=== PATIENT | female | born 1990 | race American Indian/Alaskan Native ===

== ENCOUNTER 2019-11-11 11:15 | Outpatient (CLI) | payer MEDICAID ==
[2019-11-11] MEDS ORDERED: LACTATED RINGERS 500 ML IV ONE (12:00)
[2019-11-11 12:24] VITALS: BP 122/62
[2019-11-11 13:23] LABS: Bilirubin,Urine NEG (Negative); Blood,Urine NEG (Negative); Color,Urine Yellow (Yellow); Mucus,Urine 3+ /HPF; Protein,Urine <15 mg/dL mg/dL (Negative)
== END 2019-11-11 14:02 | disposition home or self-care (01) ==
LOC: TRG 11:15 → APU 11:18 → TRG 14:02
PROVIDERS: ATTEND Obstetrics & Gynecology
DX: O26.892 Other specified pregnancy related conditions, second trimester (principal); R10.9 Unspecified abdominal pain; Z3A.25 25 weeks gestation of pregnancy
CPT/HCPCS: 59025; 81001

== ENCOUNTER 2019-12-21 17:11 | Outpatient (CLI) | payer MEDICAID ==
[2019-12-21 17:51] VITALS: BP 124/67
== END 2019-12-21 19:16 | disposition home or self-care (01) ==
LOC: TRG 17:11 → APU 17:14 → TRG 19:16
PROVIDERS: ATTEND Obstetrics & Gynecology
DX: O24.419 Gestational diabetes mellitus in pregnancy, unspecified control (principal); Z3A.30 30 weeks gestation of pregnancy
CPT/HCPCS: 59025; 82962

== ENCOUNTER 2020-01-20 17:27 | Outpatient (CLI) | payer MEDICAID ==
[2020-01-20 19:15] VITALS: BP 116/69
[2020-01-20 20:45] LABS: Bacteria,Urine 2+ /HPF (Negative); Bilirubin,Urine NEG (Negative); Blood,Urine NEG (Negative); Color,Urine Yellow (Yellow); Mucus,Urine 1+ /HPF
== END 2020-01-20 21:15 | disposition home or self-care (01) ==
LOC: TRG 17:27 → APU 17:28 → TRG 21:15
PROVIDERS: ATTEND Obstetrics & Gynecology
DX: O47.03 False labor before 37 completed weeks of gestation, third trimester (principal); Z3A.35 35 weeks gestation of pregnancy
CPT/HCPCS: 59025; 81001; 87086